=== PATIENT | female | born 1970 | race Caucasian/White ===

== ENCOUNTER 2021-03-31 21:01 | Emergency (ER) | payer OTHER ==
[2021-03-31 21:18] VITALS: BP 145/92; PULSE 70; TEMP 98.5; BMI 34.0
[2021-03-31] MEDS ORDERED: predniSONE 20 MG TABLET (UD) ONE (21:22)
[2021-03-31] MEDS ORDERED: predniSONE 20 MG TABLET (UD) PO ONE (21:29)
== END 2021-03-31 21:31 | disposition home or self-care (01) ==
LOC: FER 21:01
DX: J02.9 Acute pharyngitis, unspecified (principal)
CPT/HCPCS: 99283-25

== ENCOUNTER 2023-09-10 17:18 | Emergency (ER) | payer OTHER ==
[2023-09-10 17:50] VITALS: BP 139/94; PULSE 73; RESP 20; TEMP 98.2; BMI 32.5
[2023-09-10 18:30] LABS: HEMATOCRIT 41.4 % (32.4-45.2); HEMOGLOBIN 13.5 G/dL (10.7-15.3); MCH 31.3 pg (25.7-33.7); MCHC 32.7 g/dl (32.0-36.0); MEAN CELL VOLUME 95.8 fl (80-96); MEAN PLT VOLUME 8.7 fl (7.5-11.1); PLATELET COUNT 398.5 10^3/uL (134-434); RBC 4.32 10^6/uL (3.60-5.2); RDW 15.1 % (11.6-15.6); WHITE BLOOD COUNT 10.7 10^3/uL (4.0-10.8)
[2023-09-10] MEDS: DALBAVANCIN HCL 1,500 MG in DEXTROSE 5%-WATER - 500 ML IVPB ONE (18:30)
[2023-09-10 18:47] LABS: ALBUMIN 4.1 g/dl (3.4-5.0); BILIRUBIN,TOTAL 0.3 mg/dl (0.2-1); CALCIUM 9.7 mg/dl (8.5-10.1); CREATININE 0.7 mg/dl (0.6-1.3); POTASSIUM 3.8 mmol/L (3.5-5.1); TOT PROT 6.8 g/dl (6.4-8.2)
[2023-09-10 18:51] LABS: PLATELET ESTIMATE ADEQUATE
== END 2023-09-10 19:55 | disposition home or self-care (01) ==
LOC: FER 17:18
DX: L03.114 Cellulitis of left upper limb (principal); M79.89 Other specified soft tissue disorders
CPT/HCPCS: 36415; 73130-TC-LT-FY; 80053; 85027; 99284-25; J0875

== ENCOUNTER 2023-12-10 18:16 | Emergency (ER) | payer OTHER ==
[2023-12-10 18:27] VITALS: BP 130/77; PULSE 71; RESP 16; TEMP 98.4; BMI 32.3
[2023-12-10] MEDS ORDERED: LIDOCAINE 5% TOPICAL PATCH ONE (18:51)
[2023-12-10] MEDS ORDERED: diazePAM 5 MG TABLET ONE (18:51)
[2023-12-10] MEDS ORDERED: KETOROLAC TROMETHAMINE 30 MG/1 ML VIAL ONE (18:51)
[2023-12-10] MEDS: LIDOCAINE 5% TOPICAL PATCH TP ONE (18:56)
[2023-12-10] MEDS: KETOROLAC TROMETHAMINE 30 MG/1 ML VIAL IM ONE (18:56)
[2023-12-10] MEDS: diazePAM 5 MG TABLET PO ONE (18:57)
[2023-12-10] MEDS ORDERED: LIDOCAINE PATCH REMOVAL MC SCH (22:00)
== END 2023-12-10 19:29 | disposition home or self-care (01) ==
LOC: FER 18:16
PROC: 3E0233Z Introduction of Anti-inflammatory into Muscle, Percutaneous Approach (ICD-10-PCS; principal; 2023-12-10)
DX: S39.012A Strain of muscle, fascia and tendon of lower back, initial encounter (principal); X58.XXXA Exposure to other specified factors, initial encounter
CPT/HCPCS: 72100-TC-FY; 99284-25